=== PATIENT | female | born 1950 | race Caucasian/White ===

== ENCOUNTER 2018-12-16 05:00 | Day surgery (SDC) | payer MEDICARE, BC ==
[2018-12-15 12:40] LABS: HEMATOCRIT 41.7 % (36.0-48.0); HEMOGLOBIN 13.4 g/dL (12-16); MCH 28.7 pg (26.0-34.0); MCHC 32.1 g/dL (31.0-37.0); MCV 89.3 fL (80.0-100.0); MEAN PLATELET VOLUME 10.6 fL (7.4-10.4); RBC 4.67 10x6/uL (4.00-5.40); RDW 12.6 % (11.5-14.5); WBC 8.7 10x3/uL (4.8-10.8)
[~2018-12-16] VITALS: Ht 160 cm; Wt 73.0 kg
--- NOTE | ~2018-12-16 | OP ---
PATIENT NAME: GERMAINE TRACY MEDICAL RECORD: [id number] :50 [facility]ATION:[facility] ADMISSION DATE: SURGEON: AURORA RAMÍREZ DPM DATE OF OPERATION: 12/16/2018 PREOPERATIVE DIAGNOSIS: Arthritis, right third met cuneiform joint. POSTOPERATIVE DIAGNOSIS: Arthritis, right third met cuneiform joint. PROCEDURE: Fusion, right third metatarsal cuneiform joint utilizing bone graft. ANESTHESIA: General with local infiltrate utilizing 10 cc of 1:1 mix of lidocaine and Marcaine on the dorsal foot. HEMOSTASIS: Right thigh tourniquet at 350 mmHg. PREOPERATIVE DETAILS: The patient was taken to the OR and placed on the operating table in a supine position followed by induction of general anesthesia and infiltration of local anesthetic. The right extremity was then prepped and draped in the usual aseptic technique followed by exsanguination and inflation of tourniquet. C-arm was used to verify the joint. A 15-blade was then used to create a 3.5-4 cm linear incision over the dorsal aspect of the third met cuneiform joint. The incision was deepened down through the subcutaneous tissue. An extensor digitorum longus apparatus was visualized. A longitudinal split was made between 2 of the slips and were retracted. Dissection was carried down to the periosteum where a linear periosteal incision was made in the dorsal aspect of the third met cuneiform joint was exposed. A sagittal saw was used to resect the joint. Bone graft was then placed in the deficit and impacted. C-arm was used to verify placement. Excellent alignment was noted. The wound was flushed. The deep tissue was reapproximated with 2-0 Vicryl. The subcutaneous tissue was then reapproximated with 4-0 Rapide. The sheath over the top of the extensor digitorum longus was also repaired. The skin was then repaired with 4-0 Rapide in a subcuticular technique followed by Dermabond. Adaptic, 4 x 4 and Conform were used to dress the wound followed by application of a modified Plascencia compression dressing. Tourniquet was deflated. POSTOPERATIVE DETAILS: The patient tolerated the procedure well and left the OR with vital signs stable and vascular status at preoperative levels. The patient was transported to recovery per anesthesia in stable condition. TRANSINT:[id number] Voice Confirmation ID: [id number] DOCUMENT ID: [id number] AURORA RAMÍREZ DPM CC: [id number] DICTATION DATE: 12/16/18 0755 PAINTER HELPER SIGN: 12/16/18 1110 [facility] 12/16/18 [place] [id number] [id number]
[~2018-12-16 05:00] MED LIST: BIOTIN5 MG PO; CRESTOR40 MG PO; DESYREL50 MG; FIBERCON625 MG PO; FLUTICASONE PRO16 GM NS; KLOR-CON M2020 MEQ PO; MAXZIDE 75/501 TAB PO; MULTI-DAY VITAM1 TAB; NORCO 10/325 TA1 TA1 PO; OS-CAL500 MG PO; TOPROL XL25 MG PO; VITAMIN B COMPL1 TA1 PO; [UNRECOGNIZED DRUG - OTHER]; [UNRECOGNIZED DRUG - OTHER]; [UNRECOGNIZED DRUG - REMARK]
[2018-12-16] MEDS ORDERED: PREDNISONE10 MG PO (05:46)
[2018-12-16] MEDS ORDERED: CLARITIN 10 MG10 MG PO (05:47)
[2018-12-16] MEDS ORDERED: BENADRYL25 MG PO (05:47)
[2018-12-16 05:58] VITALS: BP 131/75; Ht 160 cm; Wt 73.0 kg
[2018-12-16 06:33] LABS: CALCIUM 8.8 mg/dL (8.5-10.1); CARBON DIOXIDE 30.7 mmol/L (21.0-32.0); CREATININE - SERUM 0.9 mg/dL (0.6-1.3); POTASSIUM - SERUM 3.7 mmol/L (3.5-5.1)
--- NOTE | 2018-12-16 09:17 | NUR ---
09 RETURNED TO ROOM PAIN OF 4/10 IS BACK PAIN. WATER SERVED. SPOUSE AT SIDE. FL DIET SERVED. NWB
--- NOTE | 2018-12-16 10:48 | NUR ---
1010 IV REMOVED AND PRESSURE HELD COBAND APPLIED
== END 2018-12-16 10:30 | disposition home or self-care (01) ==
LOC: D.OPS 05:00 → D.PAN 07:00 → D.OPS 07:00
PROVIDERS: Anesthesiology; ATTEND Podiatrist
DX: M13.872 Other specified arthritis, left ankle and foot (principal); Z01.812 Encounter for preprocedural laboratory examination

== ENCOUNTER 2020-06-02 05:45 | Day surgery (SDC) | payer MEDICARE, BC ==
[2020-05-31 10:44] LABS: HEMATOCRIT 40.9 % (36.0-48.0); HEMOGLOBIN 13.2 g/dL (12-16); MCH 29.9 pg (26.0-34.0); MCHC 32.3 g/dL (31.0-37.0); MCV 92.7 fL (80.0-100.0); MEAN PLATELET VOLUME 10.2 fL (7.4-10.4); RBC 4.41 10x6/uL (4.00-5.40); RDW 12.5 % (11.5-14.5); WBC 7.5 10x3/uL (4.8-10.8)
[2020-05-31 10:57] LABS: ANION GAP 4.7 mmol/L (8-16); CALCIUM 8.9 mg/dL (8.5-10.1); CARBON DIOXIDE 37.3 mmol/L (21.0-32.0); CREATININE - SERUM 1.1 mg/dL (0.6-1.3)
[~2020-06-02] VITALS: Ht 157.5 cm; Wt 74.8 kg
[~2020-06-02 05:45] MED LIST changes: +BENADRYL25 MG PO; +CLARITIN 10 MG10 MG PO; +FUROSEMIDE40 MG PO; +K-TAB10 MEQ PO; +LIPITOR40 MG PO; +PREDNISONE10 MG PO; +VITAMIN C500 M1 PO; +VITAMIN D PO; +ZINC50 MG PO; -[UNRECOGNIZED DRUG - OTHER]; +[UNRECOGNIZED DRUG - OTHER] INH
[2020-06-02 06:06] VITALS: BP 126/55; Ht 157.5 cm; Wt 74.8 kg
--- NOTE | 2020-06-02 10:12 | NUR ---
1000 IV D/C'D WITH CANNULA INTACT, PRESSURE HELD AND DRSG PLACED. DISCHARGE INSTRUCTIONS GIVEN AND BOT PT AND FAMILY VERBALIZED AN UNDERSTANDING. DENIES PAIN OR OTHER C/O.
--- NOTE | 2020-06-03 06:57 | OP ---
PATIENT NAME: GERMAINE TRACY MEDICAL RECORD: [id number] :50 LOCATION:[facility] ADMISSION DATE: SURGEON: MARCELINO BOB DO DATE OF OPERATION: 06/02/2020 PROCEDURE PERFORMED: Right endoscopic carpal tunnel release. PREOPERATIVE DIAGNOSIS: Right carpal tunnel syndrome. POSTOPERATIVE DIAGNOSIS: Right carpal tunnel syndrome. INDICATIONS: Ms. Tracy is a 69-year-old female who has had right carpal tunnel syndrome for some time. She does a lot of sewing and she is tired of dealing with the pain as well as waking her up at night and loss of feeling in her hand. She had nerve conduction study showing the severe carpal tunnel syndrome. I informed her of the risks including infection, bleeding, damage to the median nerve, damage to the any other nerve anomalies in the area, loss of use of the hand, and continued pain. She signed the consent. SURGEON: Marcelino Bob DO DESCRIPTION OF PROCEDURE: The patient received 2 grams Ancef preoperatively, taken to the operative suite, laid in supine position, given general anesthetic and LMA was placed. The right upper extremity was then prepped and draped in sterile fashion. Timeout was performed. Everyone was in agreement with the correct site, side, patient, and procedure. I then exsanguinated the right upper extremity with an Esmarch tourniquet inflated to 250 mmHg, it was up 10 minutes. I then made an incision of the volar wrist crease and made a blunt dissection down with Tomasnell to the median nerve. We released the forearm fascia from proximal to distal and then entered the carpal tunnel with the dilators. Once the dilators were entered, I brought in the sheath and the camera and then used a rasp and probed to ensure there was no transligamentous nerve and cleaned off the transverse carpal ligament. I then brought in the blade and raised it up. It was quite thick and then once I cut through the transverse carpal ligament, fat herniated down into the carpal tunnel. I then removed all the instruments and using a Ragnell and scissor, spread the transverse carpal ligament to ensure there was no other attached fibers. I then injected the site with 0.25% Marcaine with epinephrine 10 mL around the site and the tourniquet was let down. Any bleeding was applied with the bipolar. The site was then closed under my supervision by Nadeen Sharif, certified surgical first assistant student, with a 5-0 Monocryl in an inverted interrupted fashion. She was then dressed with a Steri-Strip, Adaptic, 4 x 4, cast padding and Coban lightly wrapped on the hand. Awakened and taken to recovery in stable condition. BLOOD LOSS: Minimal. COMPLICATIONS: None. TRANSINT:[id number] Voice Confirmation ID: [id number] DOCUMENT ID: [id number] OPERATIVE REPORT [id number] GERMAINE TRACY MICHAEL D, DO at 0657 CC: [id number] DICTATION DATE: 06/02/20 1726 MOVER: 06/03/20 0214 [facility] 06/02/20 [place] [id number] [place] [address]
== END 2020-06-02 10:14 | disposition home or self-care (01) ==
LOC: D.OPS 05:45 → D.PAN 10:00 → D.OPS 10:14
PROVIDERS: Anesthesiology; ATTEND Orthopaedic Surgery
DX: G56.01 Carpal tunnel syndrome, right upper limb (principal)